=== PATIENT | male | born 1930 | race Caucasian/White ===

== ENCOUNTER 2017-03-15 19:57 | Inpatient (IN) | payer MEDICARE, OTHER ==
[2017-03-15] MEDS ORDERED: Potassium Chloride 20 MEQ Packet PO ONE (20:25)
[2017-03-15] MEDS ORDERED: Ondansetron 4 MG/2 ML SDV IVPUSH PRN (20:29)
[2017-03-15] MEDS: Morphine 2 MG/ML Syringe IVPUSH PRN (21:08)
[2017-03-15] MEDS ORDERED: Potassium Chloride 20 MEQ Tab.ER PO ONE (21:40)
[2017-03-15] MEDS: Acetaminophen/HYDROcodone 325-5 MG Tab PO PRN (22:15)
[2017-03-16] MEDS: Lactated Ringers 1,000 ML IV SCH ×4 (00:15→23:15)
--- NOTE | 2017-03-16 07:07 | PCM.HP ---
H&P History of Present Illness - General Date of Service: 03/16/17 Admit Problem/Dx: Admission Diagnosis/Problem Admission Diagnosis/Problem Hip fracture due to osteoporosis - History of Present Illness Initial Comments - Free Text/Narative: Patient was at drug store on 03-14-2017. When he left he slipped on the ice and hit his left hip. He was able to get up and drive home and sat in his recliner until yesterday afternoon and attempted to stand and then fell to the floor. denies hitting head or LOC. Was unable to ambulate and was then seen at [facility] in [place]. His only pain is in left hip. He is normally ambulatory with no walking aids. hip fracture was diagnosed and transferred here for care. He denies cp/sob. Mild left shoulder pain. Left Hip Pain Score (Numeric/FACES): 8 - Related Data Allergies/Adverse Reactions: Allergies Allergy/AdvReac Type Severity Reaction Status Date / Time Sulfa (Sulfonamide Allergy Rash Verified 03/15/17 21:00 Antibiotics) Past Medical History Other HEENT History: Wears eyeglasses Cardiovascular History: Reports: Hypertension Psychiatric History: Reports: Depression - Infectious Disease History Infectious Disease History: Reports: Chicken Pox, Measles, Mumps, Shingles - Past Surgical History Cardiovascular Surgical History: Reports: None Social & Family History - Tobacco Use Smoking Status *Q: Never Smoker - Caffeine Use Caffeine Use: Reports: Coffee - Recreational Drug Use Recreational Drug Use: No H&P Review of Systems - Review of Systems: Review Of Systems: ROS reveals no pertinent complaints other than HPI. Exam - Exam Exam: See Below - Vital Signs Vital Signs: Last Vital Signs Temp 36.3 C 03/15/17 20:16 Pulse 89 03/16/17 00:11 Resp 16 03/16/17 00:11 BP 117/58 L 03/16/17 00:11 Pulse Ox 93 L 03/16/17 00:11 Weight: 68.039 kg - Exam General: Alert, Oriented HEENT: Mucosa Moist & [place], Pupils Equal Neck: Trachea Midline Lungs: Normal Respiratory Effort Cardiovascular: Regular Rate, Regular Rhythm GI/Abdominal Exam: Soft, Non-Tender Extremities: No Pedal Edema, Normal Capillary Refill Peripheral Pulses: 2+: Dorsalis Pedis (L), Dorsalis Pedis (R) Physical Exam Comments:: left leg is shortened and externally rotated. pain in groin to log roll. Nontender over femur and lower leg. no swelling distally. normal sensation and motor distally in leg. no pain to movement other 3 extremities - Patient Data Lab Results Last 24 hrs: Laboratory Results - last 24 hr 03/16/17 Range/Units 05:20 Sodium 144 (136-146) mmol/L Potassium 3.9 (3.5-5.1) mmol/L Chloride 111 H (98-110) mmol/L Carbon Dioxide 24 (21-31) mmol/L BUN 32 H (6.0-23.0) mg/dL Creatinine 1.4 (0.6-1.5) mg/dL Est Cr Clr Drug Dosing 35.77 mL/min Estimated GFR (MDRD) 47.9 ml/min Glucose 114 H (60-110) mg/dL Calcium 8.6 L (8.8-10.8) mg/dL Result Diagrams: 03/16/17 05:20 Imaging Impressions Last 24 hrs: pelvis and left hip shows left displaced subcapital femoral neck fx *Q Meaningful Use (ADM) - VTE *Q VTE Criteria *Q: - Stroke *Q Stroke Criteria *Q: - AMI *Q AMI Criteria *Q: Problem List Initiated/Reviewed/Updated: Yes Orders Last 24hrs: Active Orders 24 hr Category Date Time Status Patient Status [ADT] Routine ADT 03/16/17 06:49 Active Antiembolic Devices [RC] PER UNIT ROUTINE Care 03/15/17 20:32 Active Bedrest [RC] ASDIRECTED Care 03/15/17 20:25 Active EKG 12 Lead [EKG Documentation Completion] [RC] ROUTINE Care 03/15/17 20:32 Active Notify Provider Consults [RC] ASDIRECTED Care 03/15/17 20:33 Active Verify Patient Consent Obtain [RC] ASDIRECTED Care 03/16/17 06:48 Active Consult to Physician [CONS] Routine Cons 03/15/17 20:32 Active NPO After Midnight [Nothing per Oral After Midnight Diet 03/16/17 Breakfast Active Diet] [DIET] Regular Diet [DIET] Diet 03/15/17 Dinner Active Acetaminophen/HYDROcodone [[place] 325-5 MG] Med 03/15/17 20:25 Active 1 - 2 tab PO Q4H PRN Lactated Ringers [Ringers, Lactated] 1,000 ml Med 03/16/17 00:00 Active IV ASDIRECTED Morphine Med 03/15/17 20:27 Active 1 - 3 mg IVPUSH Q3H PRN Ondansetron [Zofran] Med 03/15/17 20:29 Active 4 mg IVPUSH Q6H PRN Tranexamic Acid [Cyklokapron] Med 03/16/17 10:00 Once 2,000 mg IV ONETIME ONE ceFAZolin [Ancef] 2,000 mg Med 03/16/17 10:00 Active Sodium Chloride 0.9% [Normal Saline] 100 ml IV ONETIME Sequential Compression Device [OM.PC] Routine Oth 03/15/17 20:32 Ordered Resuscitation Status Routine Resus Stat 03/16/17 06:48 Ordered Medication Orders Hydrocodone Bitart/Acetaminophen ([place] 325-5 Mg) 1 - 2 tab PO Q4H PRN PRN Reason: Pain (moderate 4-6) Last Admin: 03/15/17 22:15 Dose: 2 tab Lactated Ringer's (Ringers, Lactated) 1,000 mls @ 100 mls/hr IV ASDIRECTED RAMON Last Admin: 03/16/17 00:15 Dose: 100 mls/hr Cefazolin Sodium 2,000 mg/ (Sodium Chloride) 100 mls @ 100 mls/hr IV ONETIME ONE Stop: 03/16/17 10:59 Morphine Sulfate (Morphine) 1 - 3 mg IVPUSH Q3H PRN PRN Reason: Pain (severe 7-10) Last Admin: 03/15/17 21:08 Dose: 2 mg Ondansetron HCl (Zofran) 4 mg IVPUSH Q6H PRN PRN Reason: Nausea/Vomiting Tranexamic Acid (Cyklokapron) 2,000 mg IV ONETIME ONE Stop: 03/16/17 10:01 Assessment/Plan Comment:: displaced left femoral neck fracture - IM consult for pre-operative evaluation - plan surgery today for left hip hemiarthroplasty. I discussed the diagnosis and treatment options with him. I recommended hemiarthroplasty. He understands the risks, benefits, alternatives, and complications of left hip hemiarthroplasty including but not limited to infection, neurovascular injury, fracture, leg length discrepancy, dislocation, and he wishes to proceed. - plan SCDs and aspirin postoperatively for DVT prophylaxis. - social work consult. If everything goes as planned, will send to [place] [facility] bed on Monday. - will have PT consult with full weight bearing after surgery.
[2017-03-16] MEDS ORDERED: Propofol 200 MG/20 ML SDV ONE (08:21)
[2017-03-16] MEDS ORDERED: fentaNYL 100 MCG/2 ML SDV ONE (08:21)
[2017-03-16] MEDS ORDERED: Ondansetron 4 MG/2 ML SDV ONE (08:21)
[2017-03-16] MEDS ORDERED: Midazolam 1 MG/ML 2 ML SDV ONE (08:21)
--- NOTE | 2017-03-16 08:24 | PCM.CONS ---
H&P History of Present Illness - General Date of Service: 03/16/17 Admit Problem/Dx: Admission Diagnosis/Problem Admission Diagnosis/Problem Hip fracture due to osteoporosis Source of Information: Patient, Family, Old Records History Limitations: Reports: No Limitations - History of Present Illness Initial Comments - Free Text/Narative: This 87 year old male with pmh of HTN and depression was transferred to our facility secondary to L femoral neck fracture. Dr Croft is admitted provider and asked for medical clearance for surgery today. [place] reports he was at the local drug store on , he was leaving and heading to his vehicle when he slipped on the ice. He was helped up and ambulated with assistance to his vehicle and drove home. He made it home and got to his recliner, where he stayed for approximately 24 hours and then attempted to get out of his recliner and fell to the ground. He reports prior to falling at home, his hip pain was 6/ 10 and after fall it was 10/10. He was brought to [facility] and found to have L femoral neck fracture and then tranferred to [place] under acceptance of Dr croft. He denies no current or recent chest pain, no SOB, no palpitations. No recent URI no urinary concerns, no abdominal pain. Reports some GERD and takes omeprazole at home. No black or bloody BMS, no bleeding or coagulation history. 1 1/2 years ago he underwent cholescystectomy and appendectomy, he and his grand-daughter at bedside report he did very well post- operatively. He reports he is independent at home and [place]. he denies tobacco use now or in the past and no alcohol use. After review of transfer records, leukocytosis 14,000 noted, Hgb 14.8, BUN 28, Cr 1.3, CPK 2151, bili 1.3, AST 66, ALT 28. UA was negative. INR 1.2, PTT 13.4. L hip Xray revealed displaced left femoral neck fracture. L should X ray revealed no acute fracture. EKG SR rates in 90s, prolonged RI and QTc noted. No BBB or ST segment changes noted. He requests to be DNR but was educated during and for 24 hours after surgery he will be FULL CODE, which he and grand- daughter understood. Left Hip Pain Score (Numeric/FACES): 8 - Related Data Allergies/Adverse Reactions: Allergies Allergy/AdvReac Type Severity Reaction Status Date / Time Sulfa (Sulfonamide Allergy Rash Verified 03/15/17 21:00 Antibiotics) Home Medications: Home Meds Lisinopril/Hydrochlorothiazide [Lisinopril-Hctz 20-25 mg Tab] 20 mg PO DAILY 01/21 [History] PARoxetine [Paxil] 30 mg PO DAILY 03/16/17 [History] RX: Omeprazole 20 mg PO DAILY 03/16/17 [History] Past Medical History Other HEENT History: Wears eyeglasses Cardiovascular History: Reports: Hypertension. Denies: Afib, Blood Clots/VTE/ DVT, CAD, Heart Failure, High Cholesterol Respiratory History: Reports: None. Denies: Asthma, COPD, PE Gastrointestinal History: Reports: GERD. Denies: Chronic Constipation, GI Bleed Genitourinary History: Reports: None. Denies: Acute Renal Failure, Chronic Renal Insuffiency Musculoskeletal History: Reports: Arthritis Neurological History: Reports: None. Denies: CVA, Migraines, TIA Psychiatric History: Reports: Depression Endocrine/Metabolic History: Reports: None. Denies: Diabetes, Type II, Hypothyroidism Hematologic History: Denies: Anemia, Anticoagulation Therapy, Bleeding Disorder - Infectious Disease History Infectious Disease History: Reports: Chicken Pox, Measles, Mumps, Shingles - Past Surgical History Cardiovascular Surgical History: Reports: None GI Surgical History: Reports: Appendectomy, Cholecystectomy Social & Family History - Tobacco Use Smoking Status *Q: Never Smoker - Caffeine Use Caffeine Use: Reports: Coffee - Recreational Drug Use Recreational Drug Use: No - Living Situation & Occupation Occupation: Retired H&P Review of Systems - Review of Systems: Review Of Systems: See Below General: Reports: No Symptoms. Denies: Fever, Chills, Malaise HEENT: Reports: No Symptoms. Denies: Headaches, Hearing Changes, Sinus Congestion, Sore Throat, Vertigo Pulmonary: Reports: No Symptoms. Denies: Shortness of Breath, Cough, Sputum Cardiovascular: Reports: No Symptoms. Denies: Chest Pain, Edema Gastrointestinal: Reports: No Symptoms. Denies: Abdominal Pain, Black Stool, Bloody Stool, Distension, Hematemesis, Nausea, Vomiting Genitourinary: Reports: No Symptoms. Denies: Dysuria, Frequency, Burning, Pain Musculoskeletal: Reports: No Symptoms Skin: Reports: No Symptoms Psychiatric: Reports: No Symptoms. Denies: Confusion Neurological: Reports: No Symptoms. Denies: Confusion Hematologic/Lymphatic: Reports: No Symptoms. Denies: Anemia, Easy Bleeding Exam - Exam Exam: See Below - Vital Signs Vital Signs: Last Vital Signs Temp 97.4 F 03/15/17 20:16 Pulse 89 03/16/17 00:11 Resp 16 03/16/17 00:11 BP 117/58 L 03/16/17 00:11 Pulse Ox 93 L 03/16/17 00:11 Weight: 68.039 kg - Exam Quality Assessment: Supplemental Oxygen, DVT Prophylaxis (SCDs) General: Alert, Oriented, Cooperative HEENT: Conjunctiva Clear, Mucosa Moist & [place], Posterior Pharynx Clear, Pupils Reactive Neck: Supple, Trachea Midline. No: Lymphadenopathy Lungs: Clear to Auscultation, Normal Respiratory Effort Cardiovascular: Regular Rate, Regular Rhythm, Normal S1, Normal S2. No: Irregular Rhythm, Systolic Murmur GI/Abdominal Exam: Normal Bowel Sounds, Soft, Non-Tender, No Organomegaly, No Distention, No Abnormal Bruit, No Mass, Pelvis Stable Back Exam: Normal Inspection, Full Range of Motion, NT Extremities: Other (L leg externally rotated. no obviously bruising noted to L hip. Some tenderness to palpation. ) Neuro Extensive - Mental Status: Alert, Oriented x3, Normal Mood/Affect, Normal Cognition Neuro Extensive - Motor, Sensory, Reflexes: CN II-XII Intact Psychiatric: Alert, Normal Affect, Normal Mood - Patient Data Lab Results Last 24 hrs: Laboratory Results - last 24 hr 03/16/17 Range/Units 05:20 Sodium 144 (136-146) mmol/L Potassium 3.9 (3.5-5.1) mmol/L Chloride 111 H (98-110) mmol/L Carbon Dioxide 24 (21-31) mmol/L BUN 32 H (6.0-23.0) mg/dL Creatinine 1.4 (0.6-1.5) mg/dL Est Cr Clr Drug Dosing 35.77 mL/min Estimated GFR (MDRD) 47.9 ml/min Glucose 114 H (60-110) mg/dL Calcium 8.6 L (8.8-10.8) mg/dL Result Diagrams: 03/16/17 08:23 03/16/17 05:20 Consult PN Assessment/Plan (1) Displaced fracture of left femoral neck SNOMED Code(s): 1819864 Code(s): S72.002A - FRACTURE OF UNSP PART OF NECK OF LEFT FEMUR, INIT Current Visit: Yes (2) Fall SNOMED Code(s): 9672180 Code(s): W19.XXXA - UNSPECIFIED FALL, INITIAL ENCOUNTER Current Visit: Yes (3) Elevated CPK SNOMED Code(s): 358551819 Code(s): R74.8 - ABNORMAL LEVELS OF OTHER SERUM ENZYMES Current Visit: Yes (4) HTN (hypertension) SNOMED Code(s): 08332214 Code(s): I10 - ESSENTIAL (PRIMARY) HYPERTENSION Current Visit: Yes Qualifiers: Hypertension type: essential hypertension Qualified Code(s): I10 - Essential (primary) hypertension (5) Depression SNOMED Code(s): 68274940 Code(s): F32.9 - MAJOR DEPRESSIVE DISORDER, SINGLE EPISODE, UNSPECIFIED Current Visit: Yes Problem List Initiated/Reviewed/Updated: Yes My Orders Last 24 Hours: My Active Orders 03/16/17 07:56 CBC WITH AUTO DIFF [HEME] Routine CPK [CREATINE KINASE,CK] [CHEM] Routine 03/16/17 07:57 MAGNESIUM [CHEM] Routine Plan: This 87 year old male admitted with L femoral neck fracture, hospitalist service consulted for medical clearance. 1. L femoral neck fracture: Orders per Dr Croft. OR planned this morning. CXR negative. Heart size borderline. 2. HTN: Stable. Takes Lisinopril/ HCTZ at home, reports BP normally runs 120/ 70s. No chest pain and no history of stenting, MS or HF. 3. Elevated CPK:Improving, CPK 1501 this morning. Monitor renal function, likely secondary to fall and sitting in recliner for almost a day. BUN 32, Cr 1.4 this morning. Unsure of baseline. 4. Depression: Continue Paroxetine. VTE prophylaxis: SCDs pre-operatively. Would recommend prophylaxis post- operatively when deemed appropriate my Orthopedics. Dispo: Plan is to transfer to [facility] bed with medically stable post- operatively.
--- NOTE | 2017-03-16 08:59 | CR ---
EXAMINATION: Portable chest radiograph. HISTORY: Leukocytosis. FINDINGS: The trachea is midline. The heart is borderline in size. The cardiomediastinal silhouette is within n ormal limits. No pulmonary infiltrates, effusions or pneumothorax. Mild likely chronic interstitial p rominence. Mild aortic calcifications. Osseous structures appear unremarkable. IMPRESSION: No acute cardiopulmonary process.
--- NOTE | 2017-03-16 09:37 | PCM.PREANE ---
Preanesthetic Assessment - Anesthesia/Transfusion/Family Hx Anesthesia History: Prior Anesthesia Without Reaction Family History of Anesthesia Reaction: No - Review of Systems General: No Symptoms Pulmonary: No Symptoms Cardiovascular: No Symptoms Gastrointestinal: No Symptoms Neurological: No Symptoms Other: Reports: None - Physical Assessment NPO Status Date: 03/15/17 O2 Sat by Pulse Oximetry: 99 Respiratory Rate: 18 Vital Signs: Last Vital Signs Temp 36.6 C 03/16/17 08:00 Pulse 63 03/16/17 08:00 Resp 18 03/16/17 08:00 BP 110/56 L 03/16/17 08:00 Pulse Ox 99 03/16/17 08:00 Height: 1.78 m Weight: 68.039 kg ASA Class: 2 Mental Status: Alert & Oriented x3 Airway Class: Mallampati = 2 Dentition: Reports: Normal Dentition, Dentures Lungs: Clear to Auscultation, Normal Respiratory Effort Cardiovascular: Regular Rate, Regular Rhythm - Lab Values: Laboratory Last Values WBC 10.71 K/uL (4.0-11.0) 03/16/17 08:23 RBC 4.40 M/uL (4.50-5.90) L 03/16/17 08:23 Hgb 13.6 g/dL (13.0-17.0) 03/16/17 08:23 Hct 39.5 % (38.0-50.0) 03/16/17 08:23 MCV 89.8 fL (80.0-98.0) 03/16/17 08:23 MCH 30.9 pg (27.0-32.0) 03/16/17 08:23 MCHC 34.4 g/dL (31.0-37.0) 03/16/17 08:23 RDW Std Deviation 46.3 fl (28.0-62.0) 03/16/17 08:23 RDW Coeff of Dung 14 % (11.0-15.0) 03/16/17 08:23 Plt Count 160 K/uL (150-400) 03/16/17 08:23 MPV 11.40 fL (7.40-12.00) 03/16/17 08:23 Neut % (Auto) 73.1 % (48.0-80.0) 03/16/17 08:23 Lymph % (Auto) 17.6 % (16.0-40.0) 03/16/17 08:23 [place] % (Auto) 8.5 % (0.0-15.0) 03/16/17 08:23 Eos % (Auto) 0.7 % (0.0-7.0) 03/16/17 08:23 Baso % (Auto) 0.1 % (0.0-1.5) 03/16/17 08:23 Neut # (Auto) 7.8 K/uL (1.4-5.7) H 03/16/17 08:23 Lymph # (Auto) 1.9 K/uL (0.6-2.4) 03/16/17 08:23 [place] # (Auto) 0.9 K/uL (0.0-0.8) H 03/16/17 08:23 Eos # (Auto) 0.1 K/uL (0.0-0.7) 03/16/17 08:23 Baso # (Auto) 0.0 K/uL (0.0-0.1) 03/16/17 08:23 Nucleated RBC % 0.0 /100WBC 03/16/17 08:23 Nucleated RBCs # 0 K/uL 03/16/17 08:23 Sodium 144 mmol/L (136-146) 03/16/17 05:20 Potassium 3.9 mmol/L (3.5-5.1) 03/16/17 05:20 Chloride 111 mmol/L (98-110) H 03/16/17 05:20 Carbon Dioxide 24 mmol/L (21-31) 03/16/17 05:20 BUN 32 mg/dL (6.0-23.0) H 03/16/17 05:20 Creatinine 1.4 mg/dL (0.6-1.5) 03/16/17 05:20 Est Cr Clr Drug Dosing 35.77 mL/min 03/16/17 05:20 Estimated GFR (MDRD) 47.9 ml/min 03/16/17 05:20 Glucose 114 mg/dL (60-110) H 03/16/17 05:20 Calcium 8.6 mg/dL (8.8-10.8) L 03/16/17 05:20 Magnesium 1.5 mEq/L (1.5-2.3) 03/16/17 08:23 Creatine Kinase 1501 IU/L (9-236) H 03/16/17 08:23 - Allergies Allergies/Adverse Reactions: Allergies Allergy/AdvReac Type Severity Reaction Status Date / Time Sulfa (Sulfonamide Allergy Rash Verified 03/15/17 21:00 Antibiotics) - Anesthesia Plan Pre-Op Medication Ordered: None - Acknowledgements Anesthesia Type Planned: Spinal Pt an Appropriate Candidate for the Planned Anesthesia: Yes Alternatives and Risks of Anesthesia Discussed w Pt/Guardian: Yes Pt/Guardian Understands and Agrees with Anesthesia Plan: Yes PreAnesthesia Questionnaire Other HEENT History: Wears eyeglasses Cardiovascular History: Reports: Hypertension. Denies: Afib, Blood Clots/VTE/ DVT, CAD, Heart Failure, High Cholesterol Respiratory History: Reports: None. Denies: Asthma, COPD, PE Gastrointestinal History: Reports: GERD. Denies: Chronic Constipation, GI Bleed Genitourinary History: Reports: None. Denies: Acute Renal Failure, Chronic Renal Insuffiency Musculoskeletal History: Reports: Arthritis Neurological History: Reports: None. Denies: CVA, Migraines, TIA Psychiatric History: Reports: Depression Endocrine/Metabolic History: Reports: None. Denies: Diabetes, Type II, Hypothyroidism Hematologic History: Denies: Anemia, Anticoagulation Therapy, Bleeding Disorder - Infectious Disease History Infectious Disease History: Reports: Chicken Pox, Measles, Mumps, Shingles - Past Surgical History Cardiovascular Surgical History: Reports: None GI Surgical History: Reports: Appendectomy, Cholecystectomy - SUBSTANCE USE Smoking Status *Q: Never Smoker Recreational Drug Use History: No - CURRENT (IN HOUSE) MEDS Current Meds: Current Medications Hydrocodone Bitart/Acetaminophen ([place] 325-5 Mg) 1 - 2 tab PO Q4H PRN PRN Reason: Pain (moderate 4-6) Last Admin: 03/15/17 22:15 Dose: 2 tab Lactated Ringer's (Ringers, Lactated) 1,000 mls @ 100 mls/hr IV ASDIRECTED [facility] Last Admin: 03/16/17 00:15 Dose: 100 mls/hr Cefazolin Sodium/Dextrose 2 gm (/ Premix) 50 mls @ 50 mls/hr IV ONETIME ONE Stop: 03/16/17 10:59 Morphine Sulfate (Morphine) 1 - 3 mg IVPUSH Q3H PRN PRN Reason: Pain (severe 7-10) Last Admin: 03/15/17 21:08 Dose: 2 mg Ondansetron HCl (Zofran) 4 mg IVPUSH Q6H PRN PRN Reason: Nausea/Vomiting Tranexamic Acid (Cyklokapron) 2,000 mg IV ONETIME ONE Stop: 03/16/17 10:01 Discontinued Medications Fentanyl (Sublimaze) Confirm Administered Dose 100 mcg .ROUTE .STK-MED ONE Stop: 03/16/17 08:22 Cefazolin Sodium/Dextrose (Ancef) Confirm Administered Dose 50 mls @ as directed .ROUTE .STK-MED ONE Stop: 03/16/17 08:28 Midazolam HCl (Versed 1 Mg/Ml) Confirm Administered Dose 2 mg .ROUTE .STK-MED ONE Stop: 03/16/17 08:22 Ondansetron HCl (Zofran) Confirm Administered Dose 4 mg .ROUTE .STK-MED ONE Stop: 03/16/17 08:22 Potassium Chloride (Klor-Con) 40 meq PO ONETIME ONE Stop: 03/15/17 20:26 Last Admin: 03/15/17 22:17 Dose: Not Given Potassium Chloride (Klor-Con M20) 40 meq PO ONETIME ONE Stop: 03/16/17 21:40 Potassium Chloride (Klor-Con M20) 40 meq PO ONETIME ONE Stop: 03/15/17 21:41 Last Admin: 03/15/17 22:13 Dose: 40 meq Propofol (Diprivan 20 Ml) Confirm Administered Dose 600 mg .ROUTE .STK-MED ONE Stop: 03/16/17 08:22
[2017-03-16] MEDS ORDERED: ceFAZolin 2 GM in Premix Bag 1 BAG IV ONE (10:00)
[2017-03-16] MEDS ORDERED: Bupivacaine 0.5% 30 ML SDV ONE (10:33)
[2017-03-16] MEDS ORDERED: ePHEDrine 50 MG/ML SDV ONE (11:22)
[2017-03-16] MEDS ORDERED: Phenylephrine 1% 10 MG/ML SDV ONE (11:22)
--- NOTE | 2017-03-16 12:11 | PCM.OPNOTE ---
- General Post-Op/Procedure Note Date of Surgery/Procedure: 03/16/17 Operative Procedure(s): open treatment of left displaced femoral neck fx with hemiarthroplasty Findings: displaced femoral neck Pre Op Diagnosis: displaced left hip subcapital femoral neck fx Post-Op Diagnosis: same Anesthesia Technique: Moderate Sedation, Spinal Primary Surgeon: Joshua Mora Mai Hat Conditioner: Asia Casiano Reason Hat Conditioner Was Necessary: retraction, reduction, closing Pathology: femoral head EBL in mLs: 100 Complications: none Condition: Good Free Text/Narrative:: Intake & Output 03/15/17 03/16/17 03/16/17 22:59 06:59 14:59 Intake Total 612 Output Total 100 Balance 512
[2017-03-16] MEDS ORDERED: Bisacodyl 10 MG Supp RECTAL PRN (12:22)
[2017-03-16] MEDS ORDERED: diphenhydrAMINE 25 MG Cap PO PRN (12:22)
[2017-03-16] MEDS ORDERED: Morphine 4 MG/ML Syringe IVPUSH PRN (12:22)
[2017-03-16] MEDS ORDERED: Aluminum Hydroxide/Magnesium Hydroxide/Simethicone Susp 30 ML Cup PO PRN (12:22)
--- NOTE | 2017-03-16 12:50 | PCM.POSTAN ---
POST ANESTHESIA ASSESSMENT - MENTAL STATUS Mental Status: Alert, Oriented - RESPIRATORY Respiratory Status: Respiratory Rate WNL, Airway Patent, O2 Saturation Stable - CARDIOVASCULAR CV Status: Pulse Rate WNL, Blood Pressure Stable - GASTROINTESTINAL GI Status: No Symptoms - PAIN Pain Score: 0 - POST OP HYDRATION Hydration Status: Adequate & Stable
[2017-03-16] MEDS: Morphine 2 MG/ML Syringe IVPUSH PRN (15:35)
[2017-03-16] MEDS: Ketorolac 15 MG/ML SDV IVPUSH PRN (16:15)
[2017-03-16] MEDS ORDERED: Lactated Ringers 1,000 ML IV ONE (17:28)
[2017-03-16] MEDS: ceFAZolin 2 GM in Premix Bag 1 BAG IV SCH (17:54)
[2017-03-16] MEDS: Acetaminophen/HYDROcodone 325-5 MG Tab PO PRN ×2 (18:20→23:13)
--- NOTE | 2017-03-16 18:29 | OR ---
SURGEON: Joshua Croft MD DATE OF PROCEDURE: 03/16/2017 ENGINE WATCHMAN: Asia Casiano PA-C. PREOPERATIVE DIAGNOSIS: Left hip displaced subcapital femoral neck fracture. POSTOPERATIVE DIAGNOSIS: Left hip displaced subcapital femoral neck fracture. TEST PERFORMED: Open treatment of left hip displaced femoral neck fracture with hemiarthroplasty. ANESTHESIA: Spinal with sedation. COMPLICATION: None. ESTIMATED BLOOD LOSS: 100 mL. SPECIMENS: Femoral head. IMPLANTS: Darron bipolar size 52 mm with a 28 mm -3.5 neck length and the size 9 bipolar stem. INDICATIONS: The patient is an 87-year-old male, who fell two days ago, came to the ER yesterday in pain with a displaced femoral neck fracture. We discussed with him the risks, benefits, complications of the above procedures including limited to infection, neurovascular injury, continued pain, DVT, PE, stroke, IA, , leg- length discrepancy, fracture, dislocation, and he wished to proceed. DESCRIPTION OF PROCEDURE: The patient was seen in the preoperative area. Operative extremity was marked with the patient. He was transferred to the operating room. Spinal anesthetic was given. He was placed in the right lateral decubitus position on a peg board. Padding all bony prominences with axillary roll. The right hip was prepped and draped in sterile fashion using alcohol followed by ChloraPrep with Ioban covering. He received preop antibiotics Ancef and also received 2 g TXA. Formal time-out was taken, identifying the correct patient, procedure, and extremity. A 10 cm incision starting just centered over the greater trochanter was made from superior to inferiorly, and dissection was carried down to subcutaneous tissues. Hemostasis was obtained. The IT band was split in line with the gluteus sheela and the hip was internally rotated, and a retractor was placed between the gluteus minimus, medius, and the capsule, and then the short external rotators and capsule was taken off as a sleeve protecting sciatic nerve with the hand. These were tagged with three #2 fiber wires. The labrum was left intact. The head was then able to be removed and the neck was cut from the inferior aspect of the fracture to the piriformis area. Any adhesions of the broken fragments into the capsule removed and there was noted to be no fracture areas within the joint. The leg was then kept in 90 degrees internal rotation. Wilson retractor was placed on the neck and it was sequentially reamed, up to size 9 with excellent fit. I then broached from size 6 up to a size 9 following the [place] version. This had excellent fit and fill with no dislocation, it was trial reduced with a zero neck with a 52 mm head which was based on the size of the head. It was reduced. There was no dislocation until flexion had past 90 degrees. Complete abduction internal rotation to about 70-80 degrees. Leg length was a couple millimeters long. The hip was then dislocated and the final size 9 stem was impacted following the [place] version. Then, a -3, 28 mm head with a bipolar 52 mm diameter was impacted. The hip was reduced. Two drill holes were placed into the greater trochanter and the three tag sutures, one was passed through each of them and this was tied down with the leg in neutral position. The wound was thoroughly irrigated throughout the case. The IT band was closed with 2-0 Vicryl, subcutaneous tissues with 2-0 Strata-Fix, and skin with betty. Xeroform and sterile dressing were applied. The patient was placed in abduction pillow. He was transferred to recovery room in stable condition. Sponge and needle counts were correct at the end of the case. There were no complications. PLAN: The patient will weight bear as tolerated with therapy with aspirin for DVT prophylaxis. LELE BAPTISTE /[id number]
[2017-03-16] MEDS: Docusate Sodium 100 MG Cap PO SCH (20:54)
[2017-03-16] MEDS ORDERED: Potassium Chloride 20 MEQ Tab.ER PO ONE (21:39)
--- NOTE | 2017-03-16 21:54 | PCM48HPAN ---
Post Anesthesia Note - EVALUATION WITHIN 48HRS OF ANESTHETIC Vital Signs in Normal Range: Yes Patient Participated in Evaluation: Yes Respiratory Function Stable: Yes Airway Patent: Yes Cardiovascular Function Stable: Yes Hydration Status Stable: Yes Pain Control Satisfactory: Yes Nausea and Vomiting Control Satisfactory: Yes Mental Status Recovered: Yes
[2017-03-17] MEDS: ceFAZolin 2 GM in Premix Bag 1 BAG IV SCH (02:05)
[2017-03-17] MEDS: Acetaminophen/HYDROcodone 325-5 MG Tab PO PRN ×3 (04:44→18:20)
[2017-03-17] MEDS: Ketorolac 15 MG/ML SDV IVPUSH PRN (06:54)
[2017-03-17 07:14] LABS: CHLORIDE,CL 109 mmol/L (98-110); SODIUM,NA 140 mmol/L (136-146)
[2017-03-17] MEDS ORDERED: Sodium Chloride 0.9% 2.5 ML Syringe FLUSH PRN (07:30)
[2017-03-17] MEDS ORDERED: Sodium Chloride 0.9% 10 ML Syringe FLUSH PRN (07:30)
--- NOTE | 2017-03-17 07:39 | PCM.SN ---
- Free Text/Narrative Note: Subjective: Patient states he is overall doing well up to chair several times he is having minimal pain. Denies checks pain or shortness of breath. The nurse states that he did get slightly confused last night. His oxygen saturation was in the 80s which came up to the 90s on nasal cannula O2. His urinary output has been good. Patient understands postoperative rehabilitation restrictions. Objective: Afebrile vital signs stable Dressing left thigh is clean/dry/intact. There is no swelling in the thigh or distally. He has normal sensation and motor distally a palpable pedal pulse. HGB Assessment/plan: Postoperative day #1 left hip hemiarthroplasty for femoral neck fracture, with acute postoperative blood loss anemia Weightbearing as tolerated. Physical therapy with posterior hip precautions. Abduction pillow at night for 6 weeks. Aspirin and SCDs for DVT prophylaxis His anemia is asymptomatic at this point. Appreciate medicine and puts on lungs and kidneys Anticipate possible discharge to rehabilitation [place] tomorrow. We'll change dressing tomorrow, aspirin will be for 1 month.
--- NOTE | 2017-03-17 08:02 | PCM.CONSN ---
- General Info Date of Service: 03/17/17 Admission Dx/Problem (Free Text): Admission Diagnosis/Problem Admission Diagnosis/Problem Hip fracture due to osteoporosis Subjective Update: Sitting up in chair, reports he wishes he was feeling better, but isn't too bad. has some pain to L hip, but medication is helping. Denies chest pain or SOB. No sore throat or headache. No abdominal pain. Functional Status: Reports: Pain Controlled, Tolerating Diet, Ambulating - Review of Systems General: Reports: Malaise. Denies: Fever Pulmonary: Reports: No Symptoms. Denies: Shortness of Breath Cardiovascular: Reports: No Symptoms. Denies: Chest Pain, Palpitations, Dyspnea on Exertion Gastrointestinal: Reports: No Symptoms. Denies: Abdominal Pain, Nausea, Vomiting Genitourinary: Reports: No Symptoms. Denies: Dysuria, Frequency, Burning Musculoskeletal: Reports: Joint Pain (L hip) Neurological: Reports: No Symptoms. Denies: Confusion Psychiatric: Reports: No Symptoms. Denies: Confusion - Patient Data Vitals - Most Recent: Last Vital Signs Temp 98.2 F 03/17/17 05:00 Pulse 85 03/17/17 05:00 Resp 19 03/17/17 05:00 BP 101/53 L 03/17/17 05:00 Pulse Ox 95 03/17/17 05:00 Weight - Most Recent: 68.039 kg I&O - Last 24 Hours: Intake & Output 03/16/17 03/17/17 03/17/17 22:59 06:59 14:59 Intake Total 1250 1968 Output Total 300 275 Balance 950 1693 Lab Results Last 24 Hours: Laboratory Results - last 24 hr 03/16/17 03/16/17 03/17/17 Range/Units 08:23 08:23 06:13 WBC 10.71 (4.0-11.0) K/uL RBC 4.40 L (4.50-5.90) M/uL Hgb 13.6 10.4 L (13.0-17.0) g/dL Hct 39.5 31.3 L (38.0-50.0) % MCV 89.8 (80.0-98.0) fL MCH 30.9 (27.0-32.0) pg MCHC 34.4 (31.0-37.0) g/dL RDW Std Deviation 46.3 (28.0-62.0) fl RDW Coeff of Dung 14 (11.0-15.0) % Plt Count 160 (150-400) K/uL MPV 11.40 (7.40-12.00) fL Neut % (Auto) 73.1 (48.0-80.0) % Lymph % (Auto) 17.6 (16.0-40.0) % [place] % (Auto) 8.5 (0.0-15.0) % Eos % (Auto) 0.7 (0.0-7.0) % Baso % (Auto) 0.1 (0.0-1.5) % Neut # (Auto) 7.8 H (1.4-5.7) K/uL Lymph # (Auto) 1.9 (0.6-2.4) K/uL [place] # (Auto) 0.9 H (0.0-0.8) K/uL Eos # (Auto) 0.1 (0.0-0.7) K/uL Baso # (Auto) 0.0 (0.0-0.1) K/uL Nucleated RBC % 0.0 /100WBC Nucleated RBCs # 0 K/uL Sodium (136-146) mmol/L Potassium (3.5-5.1) mmol/L Chloride (98-110) mmol/L Carbon Dioxide (21-31) mmol/L BUN (6.0-23.0) mg/dL Creatinine (0.6-1.5) mg/dL Est Cr Clr Drug Dosing mL/min Estimated GFR (MDRD) ml/min Glucose (60-110) mg/dL Calcium (8.8-10.8) mg/dL Magnesium 1.5 (1.5-2.3) mEq/L Creatine Kinase 1501 H (9-236) IU/L 03/17/17 Range/Units 06:13 WBC (4.0-11.0) K/uL RBC (4.50-5.90) M/uL Hgb (13.0-17.0) g/dL Hct (38.0-50.0) % MCV (80.0-98.0) fL MCH (27.0-32.0) pg MCHC (31.0-37.0) g/dL RDW Std Deviation (28.0-62.0) fl RDW Coeff of Dung (11.0-15.0) % Plt Count (150-400) K/uL MPV (7.40-12.00) fL Neut % (Auto) (48.0-80.0) % Lymph % (Auto) (16.0-40.0) % [place] % (Auto) (0.0-15.0) % Eos % (Auto) (0.0-7.0) % Baso % (Auto) (0.0-1.5) % Neut # (Auto) (1.4-5.7) K/uL Lymph # (Auto) (0.6-2.4) K/uL [place] # (Auto) (0.0-0.8) K/uL Eos # (Auto) (0.0-0.7) K/uL Baso # (Auto) (0.0-0.1) K/uL Nucleated RBC % /100WBC Nucleated RBCs # K/uL Sodium 140 (136-146) mmol/L Potassium 3.7 (3.5-5.1) mmol/L Chloride 109 (98-110) mmol/L Carbon Dioxide 26 (21-31) mmol/L BUN 25 H (6.0-23.0) mg/dL Creatinine 1.1 (0.6-1.5) mg/dL Est Cr Clr Drug Dosing 45.53 mL/min Estimated GFR (MDRD) > 60.0 ml/min Glucose 131 H (60-110) mg/dL Calcium 8.1 L (8.8-10.8) mg/dL Magnesium (1.5-2.3) mEq/L Creatine Kinase 924 H (9-236) IU/L Med Orders - Current: Current Medications Hydrocodone Bitart/Acetaminophen ([place] 325-5 Mg) 1 - 2 tab PO Q4H PRN PRN Reason: Pain (moderate 4-6) Last Admin: 03/17/17 04:44 Dose: 2 tab Al Hydroxide/Mg Hydroxide (Mag-Al Plus) 30 ml PO Q4H PRN PRN Reason: indigestion Aspirin (Aspirin) 325 mg PO BID RAMON Bisacodyl (Dulcolax) 10 mg RECTAL DAILY PRN PRN Reason: Constipation Diphenhydramine HCl (Benadryl) 25 - 50 mg PO Q6H PRN PRN Reason: Itching Docusate Sodium (Colace) 100 mg PO BID [facility] Last Admin: 03/16/17 20:54 Dose: 100 mg Lactated Ringer's (Ringers, Lactated) 1,000 mls @ 125 mls/hr IV ASDIRECTED [facility] Last Admin: 03/16/17 23:15 Dose: 125 mls/hr Ketorolac Tromethamine (Toradol) 15 mg IVPUSH Q6H PRN PRN Reason: Pain Stop: 03/21/17 12:22 Last Admin: 03/17/17 06:54 Dose: 15 mg Morphine Sulfate (Morphine) 1 - 3 mg IVPUSH Q3H PRN PRN Reason: Pain (severe 7-10) Last Admin: 03/16/17 15:35 Dose: 3 mg Morphine Sulfate (Morphine) 1 - 3 mg IVPUSH Q3H PRN PRN Reason: Pain Ondansetron HCl (Zofran) 4 mg IVPUSH Q6H PRN PRN Reason: Nausea/Vomiting Sodium Chloride (Saline Flush) 10 ml FLUSH ASDIRECTED PRN PRN Reason: Keep Vein Open Sodium Chloride (Saline Flush) 2.5 ml FLUSH ASDIRECTED PRN PRN Reason: Keep Vein Open Discontinued Medications Bupivacaine HCl (Marcaine 0.5%) Confirm Administered Dose 30 ml .ROUTE .STK-MED ONE Stop: 03/16/17 10:34 Ephedrine Sulfate (Ephedrine Sulfate) Confirm Administered Dose 50 mg .ROUTE .STK-MED ONE Stop: 03/16/17 11:23 Fentanyl (Sublimaze) Confirm Administered Dose 100 mcg .ROUTE .STK-MED ONE Stop: 03/16/17 08:22 Lactated Ringer's (Ringers, Lactated) 1,000 mls @ 100 mls/hr IV ASDIRECTED [facility] Last Admin: 03/16/17 09:42 Dose: 100 mls/hr Cefazolin Sodium/Dextrose 2 gm (/ Premix) 50 mls @ 50 mls/hr IV ONETIME ONE Stop: 03/16/17 10:59 Last Admin: 03/16/17 11:07 Dose: Not Given Cefazolin Sodium/Dextrose (Ancef) Confirm Administered Dose 50 mls @ as directed .ROUTE .STK-MED ONE Stop: 03/16/17 08:28 Cefazolin Sodium/Dextrose 2 gm (/ Premix) 50 mls @ 100 mls/hr IV Q8H RAMON Stop: 03/17/17 02:59 Last Admin: 03/17/17 02:05 Dose: 100 mls/hr Lactated Ringer's (Ringers, Lactated) 1,000 mls @ 999 mls/hr IV .BOLUS ONE Stop: 03/16/17 18:28 Last Admin: 03/16/17 17:31 Dose: 999 mls/hr Midazolam HCl (Versed 1 Mg/Ml) Confirm Administered Dose 2 mg .ROUTE .STK-MED ONE Stop: 03/16/17 08:22 Ondansetron HCl (Zofran) Confirm Administered Dose 4 mg .ROUTE .STK-MED ONE Stop: 03/16/17 08:22 Phenylephrine HCl (Raghu-Synephrine) Confirm Administered Dose 10 mg .ROUTE .STK- MED ONE Stop: 03/16/17 11:23 Potassium Chloride (Klor-Con) 40 meq PO ONETIME ONE Stop: 03/15/17 20:26 Last Admin: 03/15/17 22:17 Dose: Not Given Potassium Chloride (Klor-Con M20) 40 meq PO ONETIME ONE Stop: 03/16/17 21:40 Potassium Chloride (Klor-Con M20) 40 meq PO ONETIME ONE Stop: 03/15/17 21:41 Last Admin: 03/15/17 22:13 Dose: 40 meq Propofol (Diprivan 20 Ml) Confirm Administered Dose 600 mg .ROUTE .STK-MED ONE Stop: 03/16/17 08:22 Tranexamic Acid (Cyklokapron) 2,000 mg IV ONETIME ONE Stop: 03/16/17 10:01 Last Admin: 03/16/17 11:07 Dose: Not Given Tranexamic Acid (Cyklokapron) Confirm Administered Dose 2,000 mg .ROUTE .STK- MED ONE Stop: 03/16/17 11:35 - Exam Quality Assessment: Urine Catheter, DVT Prophylaxis General: Alert, Oriented, Cooperative, No Acute Distress Neck: Supple Lungs: Clear to Auscultation, Normal Respiratory Effort Cardiovascular: Regular Rate, Regular Rhythm GI/Abdominal Exam: Normal Bowel Sounds, Soft, Non-Tender, No Organomegaly, No Distention, No Abnormal Bruit, No Mass, Pelvis Stable Extremities: Normal Inspection, No Pedal Edema Wound/Incisions: Dressing Dry and Intact (no drainage noted to dressing. L hip) . No: Erythema Neurological: No New Focal Deficit Psy/Mental Status: Alert, Normal Affect, Normal Mood Consult PN Assessment/Plan (1) Displaced fracture of left femoral neck SNOMED Code(s): 0136370 Code(s): S72.002A - FRACTURE OF UNSP PART OF NECK OF LEFT FEMUR, INIT Current Visit: Yes (2) Fall SNOMED Code(s): 6427505 Code(s): W19.XXXA - UNSPECIFIED FALL, INITIAL ENCOUNTER Current Visit: Yes (3) Elevated CPK SNOMED Code(s): 949929358 Code(s): R74.8 - ABNORMAL LEVELS OF OTHER SERUM ENZYMES Current Visit: Yes (4) HTN (hypertension) SNOMED Code(s): 94962124 Code(s): I10 - ESSENTIAL (PRIMARY) HYPERTENSION Current Visit: Yes Qualifiers: Hypertension type: essential hypertension Qualified Code(s): I10 - Essential (primary) hypertension (5) Depression SNOMED Code(s): 87363562 Code(s): F32.9 - MAJOR DEPRESSIVE DISORDER, SINGLE EPISODE, UNSPECIFIED Current Visit: Yes Problem List Initiated/Reviewed/Updated: Yes My Orders Last 24 Hours: My Active Orders 03/16/17 17:30 Lactated Ringers [Ringers, Lactated] 1,000 ml IV ASDIRECTED 03/17/17 07:59 IS (RT) [RT Incentive Spirometry] [RC] ASDIRECTED 03/18/17 05:11 BASIC METABOLIC PANEL,BMP [CHEM] AM CPK [CREATINE KINASE,CK] [CHEM] AM 03/19/17 05:11 BASIC METABOLIC PANEL,BMP [CHEM] AM CPK [CREATINE KINASE,CK] [CHEM] AM Plan: This 87 year old male admitted with L femoral neck fracture, hospitalist service consulted for medical clearance. 1. L femoral neck fracture: Orders per Dr Croft. Went to OR yesterday. Encouraged IS use 10 times every 1 hour while awake. 2. HTN: Stable. Will restart Lisinopril/ HCTZ today and monitor BP. 3. Elevated CPK: Improving, CPK 924 this morning. Would continue fluids until under 500. Monitor renal function. Will keep stanley this morning to watch output since it has been borderline. 4. Depression: Continue Paroxetine. VTE prophylaxis: Would recommend prophylaxis post-operatively when deemed appropriate my Orthopedics. ASA BID ordered per Ortho. Dispo: Plan is to transfer to [facility] with medically stable post- operatively, likely Monday.
[2017-03-17] MEDS: Lactated Ringers 1,000 ML IV SCH ×2 (08:08→17:04)
[2017-03-17] MEDS: Aspirin 325 MG Tab PO SCH ×2 (09:24→20:13)
[2017-03-17] MEDS: Docusate Sodium 100 MG Cap PO SCH ×2 (09:25→20:13)
[2017-03-17] MEDS: Omeprazole 20 MG Cap.CR PO SCH (10:33)
[2017-03-17] MEDS: PARoxetine 20 MG Tab PO SCH (10:33)
[2017-03-17] MEDS: Lisinopril 10 MG Tab PO SCH (10:34)
[2017-03-17] MEDS: Hydrochlorothiazide 25 MG Tab PO SCH (10:34)
--- NOTE | 2017-03-17 15:29 | CR ---
EXAM DATE: 03/15/17 PATIENT'S AGE: 87 Patient: LESLY SESAY Facility: [place], [place] Site . Site : [id number] Study: XRay Pelvis [id number]/[id number] 4:53:12 PM Ordering Physician: Guerda Mora Final Report: Indication: Left hip arthroplasty Technique: Pelvis 1 view Findings/Impression: Hardware from a left hip arthroplasty is in satisfactory position. Bone alignment is normal. No sign of acute fracture. Postop changes are within normal limits. Dictated by Brody Piper MD @ Mar 16 2017 5:03PM (Electronic Signature) Report Signed by Proxy. TRES
[2017-03-18] MEDS: Lactated Ringers 1,000 ML IV SCH (01:14)
[2017-03-18] MEDS: Acetaminophen/HYDROcodone 325-5 MG Tab PO PRN (03:40)
[2017-03-18 06:46] LABS: CHLORIDE,CL 108 mmol/L (98-110); SODIUM,NA 141 mmol/L (136-146)
[2017-03-18] MEDS: PARoxetine 20 MG Tab PO SCH (08:25)
[2017-03-18] MEDS: Omeprazole 20 MG Cap.CR PO SCH (08:26)
[2017-03-18] MEDS: Aspirin 325 MG Tab PO SCH (08:27)
[2017-03-18] MEDS: Docusate Sodium 100 MG Cap PO SCH (08:27)
[2017-03-18] MEDS: Hydrochlorothiazide 25 MG Tab PO SCH (08:29)
[2017-03-18] MEDS: Lisinopril 10 MG Tab PO SCH (08:29)
--- NOTE | 2017-03-18 08:37 | PCM.SN ---
- Free Text/Narrative Note: Subjective: Patient states he is overall doing well and has ambulated multiple times he is having minimal pain. Denies checks pain or shortness of breath. His urinary output has been good and has increased. Patient understands postoperative rehabilitation restrictions. Objective: Afebrile vital signs stable incision clean/dry/intact with no drainage or erythema. There is no swelling in the thigh or distally. He has normal sensation and motor distally a palpable pedal pulse. HGB 10.4 Assessment/plan: Postoperative day #2 left hip hemiarthroplasty for femoral neck fracture, with acute postoperative blood loss anemia Weightbearing as tolerated. Physical therapy with posterior hip precautions. Abduction pillow at night for 6 weeks. Aspirin and SCDs for DVT prophylaxis Anticipate possible discharge to rehabilitation [place] tomorrow. Dressing changed, may shower over it, aspirin will be for 1 month.
--- NOTE | 2017-03-18 08:42 | PCM.DCSUM1 ---
Discharge Summary - Hospital Course Brief History: patient was admitted as transfer from [place] with displaced left femoral neck fracture - Discharge Data Discharge Date: 03/18/17 Discharge Disposition: DC/Tfer to SNF 03 Condition: Good - Patient Summary/Data Operative Procedure(s) Performed: open treatment of left displaced femoral neck fx with hemiarthroplasty Consults: Consultations 03/15/17 20:32 Consult to Physician [CONS] Routine 03/16/17 07:14 Consult to Case Management [CONS] Routine 03/16/17 12:21 PT Evaluation and Treatment [CONS] Routine Hospital Course: Patient was admitted and received pre-operative medical evaluation. He underwent uneventful hemiarthroplasty. Postoperatively he was admitted to the floor where his pain was controlled, his diet was advance, and he received physical therapy with weight bearing as tolerated. His urine output increased and his CPK decreased. His hemoglobin decreased to 10.4. He did well and was discharged to SNF on post-operative day #2. - Patient Instructions Diet: Usual Diet as Tolerated Activity: Apply Ice, Full Weight Bearing Activity, Other: with walker. posterior hip precautions, no flexion past 100 degrees. Driving: Do Not Drive Showering/Bathing: July Shower Wound/Incision Care: Do NOT Change Dressing Notify Provider of: Fever, Swelling and Redness, Drainage Other/Special Instructions: aspirin twice a day for 1 month for DVT prophylaxis - Discharge Plan Home Medications: Home Meds Lisinopril/Hydrochlorothiazide [Lisinopril-Hctz 20-25 mg Tab] 20 mg PO DAILY 01/21 [History] Omeprazole 20 mg PO DAILY 03/16/17 [History] PARoxetine [Paxil] 30 mg PO DAILY 03/16/17 [History] - Discharge Summary/Plan Comment DC Time >30 min.: No - Patient Data Vitals - Most Recent: Last Vital Signs Temp 36.3 C 03/18/17 04:00 Pulse 79 03/18/17 04:00 Resp 19 03/18/17 04:00 BP 105/65 03/18/17 08:29 Pulse Ox 94 L 03/18/17 04:00 Weight - Most Recent: 68.039 kg I&O - Last 24 hours: Intake & Output 03/17/17 03/18/17 03/18/17 22:59 06:59 14:59 Intake Total 500 1666 Output Total 150 1500 Balance 350 166 Lab Results - Last 24 hrs: Laboratory Results - last 24 hr 03/18/17 Range/Units 05:45 Sodium 141 (136-146) mmol/L Potassium 3.5 (3.5-5.1) mmol/L Chloride 108 (98-110) mmol/L Carbon Dioxide 25 (21-31) mmol/L BUN 21 (6.0-23.0) mg/dL Creatinine 1.0 (0.6-1.5) mg/dL Est Cr Clr Drug Dosing 50.08 mL/min Estimated GFR (MDRD) > 60.0 ml/min Glucose 111 H (60-110) mg/dL Calcium 8.3 L (8.8-10.8) mg/dL Creatine Kinase 472 H (9-236) IU/L Med Orders - Current: Current Medications Hydrocodone Bitart/Acetaminophen ([place] 325-5 Mg) 1 - 2 tab PO Q4H PRN PRN Reason: Pain (moderate 4-6) Last Admin: 03/18/17 03:40 Dose: 2 tab Al Hydroxide/Mg Hydroxide (Mag-Al Plus) 30 ml PO Q4H PRN PRN Reason: indigestion Aspirin (Aspirin) 325 mg PO BID [facility] Last Admin: 03/18/17 08:27 Dose: 325 mg Bisacodyl (Dulcolax) 10 mg RECTAL DAILY PRN PRN Reason: Constipation Diphenhydramine HCl (Benadryl) 25 - 50 mg PO Q6H PRN PRN Reason: Itching Docusate Sodium (Colace) 100 mg PO BID [facility] Last Admin: 03/18/17 08:27 Dose: 100 mg Hydrochlorothiazide (Hydrochlorothiazide) 25 mg PO DAILY [facility] Last Admin: 03/18/17 08:29 Dose: Not Given Lactated Ringer's (Ringers, Lactated) 1,000 mls @ 125 mls/hr IV ASDIRECTED [facility] Last Admin: 03/18/17 01:14 Dose: 125 mls/hr Lisinopril (Prinivil) 20 mg PO DAILY [facility] Last Admin: 03/18/17 08:29 Dose: Not Given Morphine Sulfate (Morphine) 1 - 3 mg IVPUSH Q3H PRN PRN Reason: Pain (severe 7-10) Last Admin: 03/16/17 15:35 Dose: 3 mg Morphine Sulfate (Morphine) 1 - 3 mg IVPUSH Q3H PRN PRN Reason: Pain Omeprazole (Omeprazole) 20 mg PO DAILY [facility] Last Admin: 03/18/17 08:26 Dose: 20 mg Ondansetron HCl (Zofran) 4 mg IVPUSH Q6H PRN PRN Reason: Nausea/Vomiting Paroxetine HCl (Paxil) 30 mg PO DAILY [facility] Last Admin: 03/18/17 08:25 Dose: 30 mg Sodium Chloride (Saline Flush) 10 ml FLUSH ASDIRECTED PRN PRN Reason: Keep Vein Open Sodium Chloride (Saline Flush) 2.5 ml FLUSH ASDIRECTED PRN PRN Reason: Keep Vein Open Discontinued Medications Bupivacaine HCl (Marcaine 0.5%) Confirm Administered Dose 30 ml .ROUTE .STK-MED ONE Stop: 03/16/17 10:34 Ephedrine Sulfate (Ephedrine Sulfate) Confirm Administered Dose 50 mg .ROUTE .STK-MED ONE Stop: 03/16/17 11:23 Fentanyl (Sublimaze) Confirm Administered Dose 100 mcg .ROUTE .STK-MED ONE Stop: 03/16/17 08:22 Lactated Ringer's (Ringers, Lactated) 1,000 mls @ 100 mls/hr IV ASDIRECTED [facility] Last Admin: 03/16/17 09:42 Dose: 100 mls/hr Cefazolin Sodium/Dextrose 2 gm (/ Premix) 50 mls @ 50 mls/hr IV ONETIME ONE Stop: 03/16/17 10:59 Last Admin: 03/16/17 11:07 Dose: Not Given Cefazolin Sodium/Dextrose (Ancef) Confirm Administered Dose 50 mls @ as directed .ROUTE .STK-MED ONE Stop: 03/16/17 08:28 Cefazolin Sodium/Dextrose 2 gm (/ Premix) 50 mls @ 100 mls/hr IV Q8H [facility] Stop: 03/17/17 02:59 Last Admin: 03/17/17 02:05 Dose: 100 mls/hr Lactated Ringer's (Ringers, Lactated) 1,000 mls @ 999 mls/hr IV .BOLUS ONE Stop: 03/16/17 18:28 Last Admin: 03/16/17 17:31 Dose: 999 mls/hr Ketorolac Tromethamine (Toradol) 15 mg IVPUSH Q6H PRN PRN Reason: Pain Stop: 03/21/17 12:22 Last Admin: 03/17/17 06:54 Dose: 15 mg Midazolam HCl (Versed 1 Mg/Ml) Confirm Administered Dose 2 mg .ROUTE .STK-MED ONE Stop: 03/16/17 08:22 Non-Formulary Medication (Lisinopril/Hydrochlorothiazide [Lisinopril-Hctz 20-25 Mg Tab]) 20 mg PO DAILY RAMON Last Admin: 03/17/17 11:20 Dose: Not Given Ondansetron HCl (Zofran) Confirm Administered Dose 4 mg .ROUTE .STK-MED ONE Stop: 03/16/17 08:22 Phenylephrine HCl (Raghu-Synephrine) Confirm Administered Dose 10 mg .ROUTE .STK- MED ONE Stop: 03/16/17 11:23 Potassium Chloride (Klor-Con) 40 meq PO ONETIME ONE Stop: 03/15/17 20:26 Last Admin: 03/15/17 22:17 Dose: Not Given Potassium Chloride (Klor-Con M20) 40 meq PO ONETIME ONE Stop: 03/16/17 21:40 Potassium Chloride (Klor-Con M20) 40 meq PO ONETIME ONE Stop: 03/15/17 21:41 Last Admin: 03/15/17 22:13 Dose: 40 meq Propofol (Diprivan 20 Ml) Confirm Administered Dose 600 mg .ROUTE .STK-MED ONE Stop: 03/16/17 08:22 Tranexamic Acid (Cyklokapron) 2,000 mg IV ONETIME ONE Stop: 03/16/17 10:01 Last Admin: 03/16/17 11:07 Dose: Not Given Tranexamic Acid (Cyklokapron) Confirm Administered Dose 2,000 mg .ROUTE .STK- MED ONE Stop: 03/16/17 11:35 *Q Meaningful Use (DIS) - VTE *Q VTE Criteria *Q: - Stroke *Q Stroke Criteria *Q: - AMI *Q AMI Criteria *Q:
== END 2017-03-18 13:20 | DRG 470 ==
LOC: EDBD 19:57 → MW.MS 19:57
PROVIDERS: ADMIT Orthopaedic Surgery; ATTEND Orthopaedic Surgery
PROC: 0SRS019 Replacement of Left Hip Joint, Femoral Surface with Metal Synthetic Substitute, Cemented, Open Approach (ICD-10-PCS; principal; 2017-03-15)
DX: S72.002A Fracture of unspecified part of neck of left femur, initial encounter for closed fracture (principal); W00.0XXA Fall on same level due to ice and snow, initial encounter; Y92.481 Parking lot as the place of occurrence of the external cause; R74.8 Abnormal levels of other serum enzymes; F32.9 Major depressive disorder, single episode, unspecified; D64.9 Anemia, unspecified; I10 Essential (primary) hypertension; K21.9 Gastro-esophageal reflux disease without esophagitis; M19.90 Unspecified osteoarthritis, unspecified site; Z88.2 Allergy status to sulfonamides; Z79.899 Other long term (current) drug therapy; Z66 Do not resuscitate
CPT/HCPCS: 01214; 36415; 71045; 71045-26; 72170; 72170-26; 80048; 82550; 83735; 85014; 85018; 85025; 88305; 88311; 93005; 97110-GP; 97116-GP; 97161-GP; 97530-GP; A9270-GY; C1776; J0690; J1885; J2250; J2270; J2370; J2405; J2704; J3010; J7120